=== PATIENT | female | born 1995 | race African-American/Black ===

== ENCOUNTER 2024-01-25 03:10 | Emergency (ER) | payer OTHER ==
[~2024-01-25] VITALS: Ht 175.3 cm; Wt 61.2 kg
[2024-01-25] MEDS ORDERED: TDAP [DIPH/PERTUSSIS/TET] 0.5 ML VIAL IM ONE ×2 (05:34→05:43)
[2024-01-25] MEDS: TDAP [DIPH/PERTUSSIS/TET] 0.5 ML VIAL IM ONE (05:45)
[2024-01-25 05:46] VITALS: BP 134/85; TEMP 98.1; O2SAT 100
== END 2024-01-25 05:46 | disposition home or self-care (01) ==
LOC: ER 03:14
DX: S60.031A Contusion of right middle finger without damage to nail, initial encounter (principal); W23.0XXA Caught, crushed, jammed, or pinched between moving objects, initial encounter; Y93.89 Activity, other specified; Y92.89 Other specified places as the place of occurrence of the external cause; Y99.8 Other external cause status
CPT/HCPCS: 73130-TC; 90715

== ENCOUNTER 2024-06-18 01:04 | Emergency (ER) | payer MEDICAID, OTHER ==
[~2024-06-18] VITALS: Ht 154.9 cm; Wt 59.0 kg
[2024-06-18] MEDS ORDERED: HYDROCODONE/APAP 5/325MG TABLET ONE (01:42)
[2024-06-18] MEDS: TDAP [DIPH/PERTUSSIS/TET] 0.5 ML VIAL IM ONE (01:47)
[2024-06-18] MEDS: HYDROCODONE/APAP 5/325MG TABLET PO ONE (01:48)
[2024-06-18 03:13] VITALS: BP 128/96; TEMP 98.4; O2SAT 98
== END 2024-06-18 03:14 | disposition home or self-care (01) ==
LOC: EDUNIT# 01:04 → ER 01:07
DX: S00.81XA Abrasion of other part of head, initial encounter (principal); S09.8XXA Other specified injuries of head, initial encounter; F07.81 Postconcussional syndrome; R51.9 Headache, unspecified; R42 Dizziness and giddiness; H53.8 Other visual disturbances; V27.49XA Other motorcycle driver injured in collision with fixed or stationary object in traffic accident, initial encounter; Y93.89 Activity, other specified; Y92.488 Other paved roadways as the place of occurrence of the external cause; Y99.8 Other external cause status
CPT/HCPCS: 70450-TC; 90715

== ENCOUNTER 2025-03-01 17:59 | Emergency (ER) | payer MEDICAID, OTHER ==
[~2025-03-01] VITALS: Ht 175.3 cm; Wt 59.0 kg
[2025-03-01 18:07] VITALS: TEMP 98.6
[2025-03-01] MEDS ORDERED: LIDOCAINE 5% (PATCH) 1 EA PATCH TP ONE (18:46)
[2025-03-01] MEDS ORDERED: ONDANSETRON 4 MG TAB.RAPDIS ONE (18:47)
[2025-03-01] MEDS: LIDOCAINE 5% (PATCH) 1 EA PATCH TP SCH (18:52)
[2025-03-01] MEDS: ONDANSETRON 4 MG TAB.RAPDIS PO ONE (18:52)
[2025-03-01] MEDS ORDERED: KETOROLAC TROMETHAMINE 15 MG/ML VIAL ONE (19:25)
[2025-03-01] MEDS: KETOROLAC TROMETHAMINE 15 MG/ML VIAL IM ONE (19:30)
[2025-03-01] MEDS ORDERED: LIDO30AD10 TP (19:32)
[2025-03-01] MEDS ORDERED: IBUP-1953 PO (19:32)
[2025-03-01 21:18] VITALS: BP 119/85; O2SAT 97
== END 2025-03-01 20:00 | disposition home or self-care (01) ==
LOC: ER 18:16
DX: Z04.2 Encounter for examination and observation following work accident (principal); M54.2 Cervicalgia; M54.6 Pain in thoracic spine; R11.0 Nausea; R51.9 Headache, unspecified; V43.52XA Car driver injured in collision with other type car in traffic accident, initial encounter; Y93.89 Activity, other specified; Y92.488 Other paved roadways as the place of occurrence of the external cause; Y99.8 Other external cause status
CPT/HCPCS: 99283; 96372; 84703; J1885; Q0162